=== PATIENT | male | born 1985 | race Two or more races ===

== ENCOUNTER 2016-11-28 02:08 | Inpatient (IN) | payer OTHER ==
[2016-11-28] VITALS (18 sets, daily range): BP systolic 80–154; BP diastolic 35–103
[~2016-11-28] VITALS: Ht 182.9 cm; Wt 43.0 kg
[2016-11-28 02:54] LABS: BASOPHIL % 0.1 % (0-2); PLATELET COUNT 299 x10^3mcL (130-400); RED CELL DISTRIBUTION WIDTH 14.2 % (11.5-14.5)
[2016-11-28 03:20] LABS: ALKALINE PHOSPHATASE 272 U/L (46-116); ALT/SGPT 92 U/L (16-63); AST/SGOT 53 U/L (15-37); BILIRUBIN TOTAL 0.36 mg/dL (0.20-1.00); CALCIUM 9.2 mg/dL (8.5-10.1); CHLORIDE SERUM 84 mmol/L (98-107); CREATININE SERUM 0.6 mg/dL (0.7-1.3); GFR1 > 60 mL/min; GLUCOSE SERUM 239 mg/dL (74-106); POTASSIUM SERUM 4.9 mmol/L (3.5-5.1); TOTAL PROTEIN, SERUM 6.9 g/dL (6.4-8.2)
[2016-11-28 03:24] LABS: ALBUMIN 2.9 g/dL (3.4-5.0); CARBON DIOXIDE 44.5 mmol/L (21-32); SODIUM SERUM 123 mmol/L (136-145)
[2016-11-28 03:32] LABS: CK-MB 2.1 ng/mL (0-3.6)
[2016-11-28] MEDS ORDERED: LISINOPRIL5 MG PO (05:07)
[2016-11-28 06:11] LABS: MAGNESIUM 1.5 mg/dL (1.8-2.4)
[2016-11-28 06:12] LABS: CHOLESTEROL/HDL RATIO 2.1
[2016-11-28 06:18] LABS: FREE T4 0.96 ng/dL (0.76-1.46); FREE THYROXINE INDEX 2.7 ug/dL (1.4-4.5); T4(THYROXINE) 7.8 ug/dL (4.7-13.3)
[2016-11-28 06:52] LABS: T3 TOTAL 1.07 ng/mL
[2016-11-28] MEDS ORDERED: ZITHROMAX500 MG PO (13:43)
[2016-11-28] MEDS ORDERED: ACYCLOVIR400 MG (13:43)
[2016-11-28] MEDS ORDERED: BACTRIM DS1 TAB (13:44)
[2016-11-28] MEDS ORDERED: D-20001 TAB PO (13:45)
[2016-11-28] MEDS ORDERED: CITRACAL + BON1 EACH PO (13:47)
[2016-11-28] MEDS ORDERED: COL0.6 PO (13:47)
[2016-11-28] MEDS ORDERED: RESTASIS0.051 OU (13:48)
[2016-11-28] MEDS ORDERED: EFFEXOR-XR37.5 MG PO (13:51)
[2016-11-28] MEDS ORDERED: ETHAMBUTOL HYD400 MG PO (13:52)
[2016-11-28] MEDS ORDERED: FLUOROMETHOLONE5 M1 OU (13:53)
[2016-11-28] MEDS ORDERED: NEURONTIN600 MG PO (13:54)
[2016-11-28] MEDS ORDERED: GLUTASOLVE15 GM PO (14:00)
[2016-11-28] MEDS ORDERED: ATROVENT H0.017 MG/1 INH (14:01)
[2016-11-28] MEDS ORDERED: LINEZOLID600 MG PO (14:02)
[2016-11-28] MEDS ORDERED: LOV40I SQ (14:05)
[2016-11-28] MEDS ORDERED: MONTELUKAST SOD10 M1 PO (14:06)
[2016-11-28] MEDS ORDERED: PROTONIX40 MG PO (14:06)
[2016-11-28] MEDS ORDERED: NOXAFIL100 MG PO (14:07)
[2016-11-28] MEDS ORDERED: PREDNISONE20 MG PO (14:14)
[2016-11-28] MEDS ORDERED: ANDRODERM2 MG/24 HR TD (14:19)
[2016-11-28] MEDS ORDERED: VITAMIN B PO (14:21)
[2016-11-28] MEDS ORDERED: URSODIOL300 MG PO (14:22)
[2016-11-28] MEDS ORDERED: ZYRTEC10 MG PO (14:24)
[2016-11-28] MEDS ORDERED: XOPENEX HF0.045 MG/1 INH (14:24)
[2016-11-28 18:50] LABS: CALCIUM 9.2 mg/dL (8.5-10.1); CARBON DIOXIDE 37.5 mmol/L (21-32); CHLORIDE SERUM 92 mmol/L (98-107); CREATININE SERUM 0.8 mg/dL (0.7-1.3); GFR1 > 60 mL/min; GLUCOSE SERUM 130 mg/dL (74-106); POTASSIUM SERUM 4.7 mmol/L (3.5-5.1); SODIUM SERUM 130 mmol/L (136-145)
[2016-11-29] VITALS (14 sets, daily range): BP systolic 104–135; BP diastolic 55–80
[2016-11-29 02:09] LABS: microscopic required? YES; urine erythrocyte 2+ (NEGATIVE)
[2016-11-29 05:48] LABS: BASOPHIL % 0.1 % (0-2); PLATELET COUNT 214 x10^3mcL (130-400)
[2016-11-29 05:49] LABS: RED CELL DISTRIBUTION WIDTH 14.9 % (11.5-14.5)
[2016-11-29 06:10] LABS: CALCIUM 8.6 mg/dL (8.5-10.1); CARBON DIOXIDE 38.6 mmol/L (21-32); CHLORIDE SERUM 91 mmol/L (98-107); CREATININE SERUM 0.4 mg/dL (0.7-1.3); GFR1 > 60 mL/min; GLUCOSE SERUM 161 mg/dL (74-106); MAGNESIUM 1.8 mg/dL (1.8-2.4); PHOSPHOROUS 2.3 mg/dL (2.5-4.9); POTASSIUM SERUM 3.5 mmol/L (3.5-5.1); SODIUM SERUM 128 mmol/L (136-145)
[2016-11-30] VITALS (18 sets, daily range): BP systolic 111–130; BP diastolic 62–88; Ht 182.9 cm; Wt 43.0 kg
[2016-11-30 06:15] LABS: CALCIUM 8.7 mg/dL (8.5-10.1); CARBON DIOXIDE 39.7 mmol/L (21-32); CHLORIDE SERUM 93 mmol/L (98-107); CREATININE SERUM 0.5 mg/dL (0.7-1.3); GFR1 > 60 mL/min; GLUCOSE SERUM 169 mg/dL (74-106); MAGNESIUM 1.6 mg/dL (1.8-2.4); PHOSPHOROUS 3.7 mg/dL (2.5-4.9); SODIUM SERUM 134 mmol/L (136-145)
[2016-11-30 06:23] LABS: PLATELET COUNT 224 x10^3mcL (130-400)
[2016-11-30 06:26] LABS: BASOPHIL % 0 % (0-2); RED CELL DISTRIBUTION WIDTH 14.9 % (11.5-14.5)
[2016-12-01] VITALS (7 sets, daily range): BP systolic 116–127; BP diastolic 73–99
[2016-12-01 05:29] LABS: BASOPHIL % 0.1 % (0-2); PLATELET COUNT 242 x10^3mcL (130-400)
[2016-12-01 05:34] LABS: RED CELL DISTRIBUTION WIDTH 15.2 % (11.5-14.5)
[2016-12-01 05:38] LABS: CALCIUM 8.9 mg/dL (8.5-10.1); CHLORIDE SERUM 91 mmol/L (98-107); CREATININE SERUM 0.5 mg/dL (0.7-1.3); GFR1 > 60 mL/min; GLUCOSE SERUM 149 mg/dL (74-106); MAGNESIUM 1.8 mg/dL (1.8-2.4); POTASSIUM SERUM 4.2 mmol/L (3.5-5.1); SODIUM SERUM 132 mmol/L (136-145)
[2016-12-01 05:43] LABS: CARBON DIOXIDE 42.3 mmol/L (21-32)
[2016-12-01] MEDS ORDERED: ZIT250 GT (10:07)
[2016-12-01] MEDS ORDERED: BACDS GT (10:08)
[2016-12-01] MEDS ORDERED: ZOVIRAX400 MG GT (10:09)
[2016-12-01] MEDS ORDERED: ETH400 GT (10:09)
[2016-12-01] MEDS ORDERED: IPRATROPIUM BROM3 M2 HHN ×2 (10:09→10:10)
[2016-12-01] MEDS ORDERED: XARELTO20 M1 PO (10:10)
[2016-12-01] MEDS ORDERED: HYDROMORPHONE1 MG/M1 IV (10:11)
[2016-12-01] MEDS ORDERED: PULMICORT0.5 MG/2 M IH (10:12)
[2016-12-01] MEDS ORDERED: NPHOS GT (10:12)
[2016-12-01] MEDS ORDERED: ARTOS OU (10:13)
[2016-12-01] MEDS ORDERED: MONTELUKAST SOD10 M1 PO (10:13)
[2016-12-01] MEDS ORDERED: PROT40I IV (10:14)
[2016-12-01] MEDS ORDERED: ZOFI IV (10:14)
[2016-12-01] MEDS ORDERED: THI100 PO (10:14)
[2016-12-01] MEDS ORDERED: LAC PO (10:14)
[2016-12-01] MEDS ORDERED: Linezolid IV (10:42)
[2016-12-01] MEDS ORDERED: Zosyn IV (10:42)
[2016-12-01] MEDS ORDERED: solumedrol IV (10:42)
== END 2016-12-01 11:50 | disposition short-term general hospital (02) | DRG 208 ==
LOC: ED 02:08 → IC 04:40
PROVIDERS: Emergency Medicine; ADMIT Family Medicine
PROC: 5A1945Z Respiratory Ventilation, 24-96 Consecutive Hours (ICD-10-PCS; principal; 2016-11-28)
PROC: 0BH17EZ Insertion of Endotracheal Airway into Trachea, Via Natural or Artificial Opening (ICD-10-PCS; 2016-11-28)
DX: J96.02 Acute respiratory failure with hypercapnia (principal); N17.0 Acute kidney failure with tubular necrosis; J69.0 Pneumonitis due to inhalation of food and vomit; E43 Unspecified severe protein-calorie malnutrition; E87.1 Hypo-osmolality and hyponatremia; B44.1 Other pulmonary aspergillosis; Z94.84 Stem cells transplant status; Z68.1 Body mass index [BMI] 19.9 or less, adult; J96.01 Acute respiratory failure with hypoxia; T40.2X1A Poisoning by other opioids, accidental (unintentional), initial encounter; G89.29 Other chronic pain; E87.6 Hypokalemia; E83.39 Other disorders of phosphorus metabolism; E83.42 Hypomagnesemia; J42 Unspecified chronic bronchitis; Z85.6 Personal history of leukemia; Z99.81 Dependence on supplemental oxygen; Z86.711 Personal history of pulmonary embolism; Z79.891 Long term (current) use of opiate analgesic; M85.80 Other specified disorders of bone density and structure, unspecified site; I95.2 Hypotension due to drugs; Y92.018 Other place in single-family (private) house as the place of occurrence of the external cause; F32.9 Major depressive disorder, single episode, unspecified
CPT/HCPCS: 36600; 83880; 84439; 85378; 87107; A4628; C9113; J0330; J1170; J1644; J2020; J2250; J2370; J2543; J2704; J2920; J2930; J3010; J3475; J3490; J7030; J7613; J7620; J7626; J7644; Q0092; Q9967